=== PATIENT | male | born 2000 ===

== ENCOUNTER 2022-11-27 17:05 | Emergency (ER) | payer OTHER, SELFPAY ==
[2022-11-27 17:10] VITALS: BP 150/105; PULSE 72; RESP 20; TEMP 37; O2SAT 99
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
[2022-11-27] MEDS: Acetaminophen 500 MG TAB 1000 MG PO (18:13)
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
[2022-11-27] MEDS: Ondansetron O.D.T. 4 MG TABEF PO (19:59)
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
[2022-11-27 20:53] VITALS: BP 134/87; PULSE 71
--- NOTE | 2022-11-27 22:53 | NUR.NOTE ---
faxed radiology report to [facility] per their request.Nursing Note:
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
== END 2022-11-27 20:47 ==
PROVIDERS: Emergency Provider Student in an Organized Health Care Education/Training Program
DX: S09.90XA Unspecified injury of head, initial encounter (principal); S02.32XA Fracture of orbital floor, left side, initial encounter for closed fracture; S01.112A Laceration without foreign body of left eyelid and periocular area, initial encounter; R11.2 Nausea with vomiting, unspecified; H57.04 Mydriasis; Y04.0XXA Assault by unarmed brawl or fight, initial encounter; Y93.89 Activity, other specified; Y92.89 Other specified places as the place of occurrence of the external cause; Y99.9 Unspecified external cause status
CPT/HCPCS: 99284; 70450; 70486